=== PATIENT | male | born 1940 | race Caucasian/White ===

== ENCOUNTER 2018-12-02 05:04 | Observation (INO) ==
--- NOTE | 2018-11-26 09:39 | EKG Report ---
Test Performed on : 11/26/2018 09:17:05 AM Test Reason : pat Blood Pressure : / mmHG Vent. Rate : 067 BPM Atrial Rate : 067 BPM P-R Int : 158 ms QRS Dur : 124 ms QT Int : 390 ms P-R-T Axes : 065 080 057 degrees QTc Int : 412 ms Normal sinus rhythm. Right bundle branch block Abnormal ECG No previous ECGs available Confirmed by Pauly YANEZ, Suraj Schneider ([id number]) on 11/26/2018 3:26:57 PM
[2018-11-26 10:35] LABS: HEMATOCRIT 49.3 % (42.0-52.0); HEMOGLOBIN 15.8 g/dL (14.0-18.0); MCH 30.8 PG (27-31); MCV 96.1 FL (81-99); MPV 12.7 FL (7.4-10.4); RBC 5.13 XMIL (4.7-6.1); RDW 13.6 % (11.5-14.5); WBC 6.59 X1000 (4.8-10.8)
[2018-11-26 10:48] LABS: AGAP 10; BUN 12 mg/dL (8-22); CALCIUM 9.1 mg/dL (8.8-10.2); CHLORIDE 105 mmol/L (98-107); COSMO 281; CREATININE 0.9 mg/dL (0.7-1.2); ESTIMATED GFR > 60; GLUCOSE 99 mg/dL (70-104); POTASSIUM 4.4 mmol/L (3.5-5.1); SODIUM 141 mmol/L (136-145); TCO2 26 mmol/L (25-35)
[2018-12-02] MEDS ORDERED: LR 1,000 ML ONE ×3 (05:38→11:18)
[2018-12-02] MEDS ORDERED: KEFZOL 1 GM/D5W 2 GM/100 ML IVPB ONE (05:38)
[2018-12-02] MEDS ORDERED: NORCURON ONE ×2 (06:13→08:49)
[2018-12-02] MEDS ORDERED: QUELICIN (DOSE) ONE (06:13)
[2018-12-02] MEDS ORDERED: XYLOCAINE-MPF 2% ONE (06:13)
[2018-12-02] MEDS ORDERED: SODIUM CHLORIDE 0.9% 10 ML ONE ×2 (06:13→06:18)
[2018-12-02] MEDS ORDERED: FENTANYL ONE ×2 (06:13→10:24)
[2018-12-02] MEDS ORDERED: DIPRIVAN 1% ONE (06:13)
[2018-12-02] MEDS ORDERED: OFIRMEV 1000 MG/ISOTONIC SOLN 1,000 MG/100 ML BOTTLE ONE (06:13)
[2018-12-02] MEDS ORDERED: B & O 16A SUPP ONE (06:34)
[2018-12-02] MEDS ORDERED: SENSORCAINE-MPF 0.5%/EPI 1:200,000 ONE (06:34)
[2018-12-02] MEDS ORDERED: EPHEDRINE ONE (07:05)
[2018-12-02] MEDS ORDERED: ZOFRAN ONE (07:15)
[2018-12-02] MEDS ORDERED: DECADRON ONE (07:15)
[2018-12-02] MEDS ORDERED: NEOSTIGMINE ONE (07:32)
[2018-12-02] MEDS ORDERED: ROBINUL ONE (07:32)
[2018-12-02 08:20] LABS: URINE SOURCE CATH
[2018-12-02 08:42] LABS: BILIRUBIN URINE NEGATIVE (NEGATIVE); BLOOD URINE TRACE (NEGATIVE); COLOR YELLOW; GLUCOSE URINE NEGATIVE (NEGATIVE); KETONE URINE NEGATIVE (NEGATIVE); LEUKOCYTES URINE NEGATIVE (NEGATIVE); NITRITE URINE NEGATIVE (NEGATIVE); PROTEIN URINE TRACE mg/dL (NEGATIVE); SP GRAVITY URINE 1.016; TURBIDITY URINE CLEAR (CLEAR); UROBILINOGEN URINE NORMAL (NORMAL)
[2018-12-02 08:45] LABS: UR EPITHELIAL CELLS <10 /HPF (<10); URINE BACTERIA NEGATIVE /HPF; URINE RBC <10 /HPF (<10); URINE WBC <10 /HPF (<10)
--- NOTE | 2018-12-02 11:54 | OPERATIVE NOTE ---
PROCEDURE DATE: 12/02/2018 SURGEON: Pantera Sheldon MD ASSISTANCE SURGEON: Rudy Ferreira MD PREOPERATIVE DIAGNOSIS: Adenocarcinoma of the prostate, Leggett grade 3 + 4. POSTOPERATIVE DIAGNOSIS: Adenocarcinoma of the prostate, Leggett grade 3 + 4. PROCEDURE PERFORMED: 1. Laparoscopic robot-assisted radical retropubic prostatectomy. 2. Modified bilateral pelvic lymph node dissection. 3. Urethral suspension. ANESTHESIA: General endotracheal. FINDINGS: Normal-appearing prostate with attached seminal vesicles and ampulla of vas deferens. Normal-appearing lymph nodes. INDICATION FOR PROCEDURE: This 78-year-old male has a history of elevated PSA and elevated risk 4Kscore. Ultrasound and biopsies revealed adenocarcinoma, Mc grade 3 + 4 in 75% of 1 core. He has decided on radical prostatectomy. DESCRIPTION OF PROCEDURE: After informed consent was obtained from the patient and him receiving IV antibiotics, he was taken to the main OR and placed in the supine position. General endotracheal anesthesia was achieved. He was then placed in the low lithotomy position and prepped and draped in the usual sterile fashion for abdominal, penile, and perineal surgery. An 18-Czech Khanna catheter was passed through the patient's urethra sterilely and 10 mL of sterile water were placed in the balloon. A small incision was made above the umbilicus. The Veress needle was placed. Water drop test was performed. Pneumoperitoneum to 15 cm of water was achieved. After the abdomen was insufflated, the Visiport was used to place a 12 mm port that is used as the camera port. The camera was placed. The remaining robot trocars were placed in the standard position with the #4 arm just above the right anterior superior iliac spine, the #1 arm was placed 1 handbreadth to the right of the camera, the #2 arm was placed 1-1/2 handbreadths to the left of the camera. The library serials assistant port was placed at approximate 1 handbreadth to the left of the camera port in the left epigastric. After the camera ports were placed, the patient was lowered all the way and placed in steep Trendelenburg. The robot was docked. The procedure was started by making an incision 2 cm above the reflection of the peritoneum off the rectum onto the anterior abdominal wall. This was taken back to the ampulla of vas deferens and seminal vesicles. These were bluntly and sharply dissected free. The vascular pedicle to the tips of the seminal vesicles were taken down with clips. Both sides were accomplished similarly. They were completely dissected free. The ampulla of vas deferens was incised with the electrocautery and the artery to the vas deferens was cauterized with the electrocautery. Attention was then turned to the anterior abdominal wall, where an incision was made in the peritoneum medial to the internal inguinal ring. The incision was taken down to the vas deferens as it went down into the pelvis and up onto the anterior abdominal wall. Both sides were accomplished similarly. The medial and median umbilical ligaments were taken down sharply and the bladder was dropped off the anterior abdominal wall. All of the fibrofatty tissue was removed from the anterior and lateral sides of the prostate. The endopelvic fascia was entered sharply lateral to the prostate and taken up to the puboprostatic ligaments and back to the base of the prostate. Both sides were accomplished similarly. The levator ani muscles were pushed off the sides of the prostate. The puboprostatic ligaments were taken down sharply. The dorsal vein complex was ligated with a 2-0 V- Loc suture that was placed twice around the dorsal vein complex, through the periosteum of the pubis, back under the dorsal vein complex, and then back through the periosteum of the pubis. The pelvic lymph node dissection was then performed by incising the tissue over the medial portion of the external iliac vein. This incision was taken down to the cintia cloaca and up to the bifurcation of the external and internal iliac veins. All cintia tissue on the medial side of the vein going down to the obturator nerve and then up the obturator nerve to the bifurcation of the external and internal iliac vein. The lymphostasis and hemostasis were achieved electrocautery and clips. Both sides were accomplished similarly. Each side was sent to Pathology in its own container. Attention was then turned back to the prostate, where the bladder neck fibers were incised sharply and dissected off the base of the prostate. The bladder was entered. The Khanna catheter was brought out through the cystotomy and pulled up to act as a traction device. The remaining part of the bladder was sharply dissected off the base of the prostate down to the previously dissected space, where the ampulla of vas deferens and seminal vesicles were located. This was entered. These structures were pulled up through this incision and the bladder was completely freed from the prostate. The prostate pedicles were taken down with clips and the neurovascular bundle was dissected off of the prostate all the way down to the apex. Both sides were accomplished similarly. The rectum was bluntly and sharply dissected off of the posterior prostate. The remaining dorsal vein complex was incised sharply at the apex of the prostate, leaving the previously placed the V-Loc suture intact. The urethra was exposed and incised. The Khanna catheter was pulled back such that the posterior urethra was visualized. This was incised. The remaining fibers of the posterior rhabdosphincter were incised and the prostate with attached seminal vesicles and vas deferens were placed in the Endo Catch retrieval bag. It was then moved to the side. The pelvis was irrigated. The vesicovisceral fascia was reattached to the posterior rhabdosphincter with a running suture of 3-0 V-Loc. The bladder was anastomosed to the urethra with a running suture of 3-0 V-Loc. A 16-Czech Khanna catheter was passed through the patient's urethra and into the bladder, 10 mL sterile water were placed in Khanna's balloon, the bladder was distended to 120 mL, and no leakage area was seen. The previously placed sutures in the vesicovisceral fascia and posterior rhabdosphincter, the needle was then passed through the periosteum of the pubis, and tension was placed. This acts as a urethral suspension. The needles were removed. All needle counts were correct. The pneumoperitoneum was decreased to 3 cm of water pressure and no bleeding areas were seen. The Endo Catch retrieval bag strings were brought out through the camera port. After this was accomplished, pneumoperitoneum was resolved. The robot was undocked. The patient's table was placed in the supine position. The robot trocars were removed. The camera port incision was extended and the specimen was brought out through this incision. The abdominal rectus fascia was reapproximated with interrupted sutures of #1 Maxon. The subcutaneous tissue was reapproximated with a simple suture of 3-0 Vicryl. The skin incisions were reapproximated with clips. During the procedure, the pneumoperitoneum distended his scrotum and there was a small area that split of the scrotal skin. This was covered with OpSite. He tolerated the procedure well. Estimated blood loss 50 mL. He was taken to the recovery room in good condition. cc: Pantera Sheldon MD
[2018-12-02] MEDS ORDERED: PHENERGAN IV PRN (12:15)
[2018-12-02] MEDS ORDERED: BENADRYL IV PRN (12:15)
[2018-12-02] MEDS ORDERED: LABETALOL IV PRN (12:15)
[2018-12-02] MEDS ORDERED: DITROPAN PO PRN (12:15)
[2018-12-02] MEDS ORDERED: OXY IR PO PRN (12:15)
[2018-12-02] MEDS ORDERED: SODIUM CHLORIDE 0.9% INJ PRN (12:15)
[2018-12-02] MEDS: LR 1,000 ML IV SCH (13:12)
[2018-12-02] MEDS ORDERED: GENTAMICIN 0.3% OPH OINT RIGHT EYE ONE (13:34)
[2018-12-02] MEDS ORDERED: BSS OPHTH SOLN RIGHT EYE ONE (13:35)
[2018-12-02] MEDS ORDERED: OFIRMEV 1000 MG/ISOTONIC SOLN 1,000 MG/100 ML BOTTLE IV PRN (14:00)
[2018-12-02] MEDS: GENTAMICIN 0.3% OPH DROPS RIGHT EYE SCH ×2 (14:14→22:04)
[2018-12-02] MEDS: KEFZOL 1 GM/D5W 1 GM/50 ML IVPB IV SCH ×2 (14:40→22:03)
[2018-12-02] MEDS: OXY IR PO PRN ×2 (15:21→22:14)
[2018-12-02] MEDS ORDERED: GENTAMICIN 0.3% OPH DROPS RIGHT EYE SCH (17:00)
[2018-12-02] MEDS: PEPCID PO SCH (22:03)
[2018-12-02] MEDS: PERIDEX MT SCH (22:03)
[2018-12-02] MEDS: COLACE PO SCH (22:04)
[2018-12-03] MEDS: KEFZOL 1 GM/D5W 1 GM/50 ML IVPB IV SCH (06:30)
[2018-12-03] MEDS: LR 1,000 ML IV SCH (06:46)
[2018-12-03 07:13] LABS: HEMATOCRIT 41.6 % (42.0-52.0); HEMOGLOBIN 13.3 g/dL (14.0-18.0); MCH 31.6 PG (27-31); MCV 98.8 FL (81-99); MPV 12.4 FL (7.4-10.4); RBC 4.21 XMIL (4.7-6.1); RDW 13.7 % (11.5-14.5); WBC 8.86 X1000 (4.8-10.8)
[2018-12-03 07:31] VITALS: BP 128/71
[2018-12-03 07:48] LABS: POTASSIUM 4.5 mmol/L (3.5-5.1)
[2018-12-03 07:55] LABS: AGAP 10; BUN 12 mg/dL (8-22); CALCIUM 7.9 mg/dL (8.8-10.2); CHLORIDE 103 mmol/L (98-107); COSMO 278; ESTIMATED GFR > 60; GLUCOSE 108 mg/dL (70-104); SODIUM 139 mmol/L (136-145); TCO2 26 mmol/L (25-35)
[2018-12-03] MEDS: PEPCID PO SCH (08:17)
[2018-12-03] MEDS: COLACE PO SCH (08:17)
[2018-12-03] MEDS: PERIDEX MT SCH (08:18)
[2018-12-03] MEDS: OXY IR PO PRN (08:45)
[2018-12-03] MEDS ORDERED: VITAMIN B-12 PO SCH (09:00)
[2018-12-03] MEDS ORDERED: CENTRUM SILVER PO SCH (09:00)
== END 2018-12-03 11:18 | disposition home or self-care (01) ==
LOC: 4N 05:04 → OR 05:04 → 4N 11:10
PROVIDERS: ADMIT Urology; ATTEND Urology
CPT/HCPCS: 80048; 81001; 85027; 88307; 88309; 93005; 93010; 94761; 94799; 96374; 96376; A9270; G0378; G0379; J0131; J0330; J0690; J1100; J2405; J3010; J7120; S2900